=== PATIENT | female | born 1985 | race African-American/Black ===

== ENCOUNTER 2019-08-22 09:35 | Emergency (ER) | payer MEDICAID ==
[~2019-08-22] VITALS: Ht 165.1 cm; Wt 57.0 kg
[2019-08-22] MEDS ORDERED: PREDNISONE 20MG TABLET PO STA (10:30)
[2019-08-22] MEDS ORDERED: ALBUTEROL (0.083%) 2.5MG/3ML NEB HHN STA (10:30)
[2019-08-22 11:08] LABS: CLARITY URINE CLOUDY (CLEAR); COLOR URINE YELLOW (YELLOW); KETONES URINE 4+ (NEGATIVE); LEUKOCYTE ESTERASE URINE 2+ (NEGATIVE); NITRITE URINE POSITIVE (NEGATIVE); OCCULT BLOOD URINE 1+ (NEGATIVE); PH URINE 5.5 (4.5-8.0); PROTEIN URINE TRACE (NEGATIVE); SPECIFIC GRAVITY URINE 1.018 (1.005-1.030)
[2019-08-22 11:11] LABS: BASOPHILS % 0.5 % (0.0-2.0); EOSINOPHILS % 0.3 % (0.0-5.0); HEMATOCRIT. 36.8 % (36.0-48.0); HEMOGLOBIN. 12.7 g/dL (12.0-16.0); LYMPHOCYTES % 15.2 % (20.0-50.0); MEAN CORPUSCULAR HEMOGLOBIN 30.9 pg (28.0-32.0); MEAN CORPUSCULAR VOLUME 89.1 fL (81.0-99.0); MEAN PLATELET VOLUME 8.9 fl (7.4-10.4); PLATELET 85 x1000/uL (130-400); RED BLOOD CELL COUNT 4.12 mill/uL (4.2-5.4); RED CELL DISTRIBUTION WIDTH 15.3 % (11.6-14.6)
[2019-08-22 11:20] LABS: CHLORIDE 109 mEq/L (98-107)
[2019-08-22 11:24] LABS: ETHANOL BLOOD 102 mg/dL
[2019-08-22 11:27] LABS: HCG SCREEN NEGATIVE
[2019-08-22 12:11] LABS: *AMPHETAMINES SCREEN URINE NEGATIVE (NEGATIVE); *BARBITURATES SCREEN URINE NEGATIVE (NEGATIVE)
[2019-08-22 12:12] LABS: *BENZODIAZEPINES SCREEN URINE NEGATIVE (NEGATIVE); *COCAINE SCREEN URINE NEGATIVE (NEGATIVE); CANNABINOID URINE SCREEN NEGATIVE (NEGATIVE); METHADONE URINE SCREEN NEGATIVE (NEGATIVE); OPIATES URINE SCREEN NEGATIVE (NEGATIVE); PHENCYCLIDINE URINE SCREEN NEGATIVE (NEGATIVE)
[2019-08-22 13:50] VITALS: BP 120/78
[2019-08-22] MEDS ORDERED: CEFTRIAXONE SODIUM 1 G/VIAL IM ONE (14:00)
[2019-08-22] MEDS ORDERED: METRONIDAZOLE 500MG TABLET PO SCH (14:45)
== END 2019-08-22 14:57 | disposition home or self-care (01) ==
LOC: ER 10:11
DX: A59.01 Trichomonal vulvovaginitis (principal); N39.0 Urinary tract infection, site not specified; J45.909 Unspecified asthma, uncomplicated; I10 Essential (primary) hypertension; F17.211 Nicotine dependence, cigarettes, in remission
CPT/HCPCS: 36415; 80053; 80305; 80320; 81003; 81025; 84703; 85025; 87077; 87086; 87186; 94640; 96372; 99284; 99406; J0696; J7512; J7611; Z7610; G0480

== ENCOUNTER 2020-05-29 13:33 | Observation (INO) | payer MEDICAID ==
[~2020-05-29] VITALS: Ht 165.1 cm; Wt 65.8 kg
[2020-05-29] MEDS ORDERED: LACTATED RINGERS 1,000 ML IV SCH (14:45)
[2020-06-01] MEDS ORDERED: PNV1TABL76 PO (06:21)
== END 2020-05-29 15:08 | disposition home or self-care (01) ==
LOC: 8 EST LDRP 13:33
PROVIDERS: ADMIT Obstetrics & Gynecology; ATTEND Obstetrics & Gynecology
DX: Z34.93 Encounter for supervision of normal pregnancy, unspecified, third trimester (principal); Z20.828 Contact with and (suspected) exposure to other viral communicable diseases; Z3A.38 38 weeks gestation of pregnancy
CPT/HCPCS: 59025; G0378; U0003; 99281

== ENCOUNTER 2021-08-04 13:10 | Emergency (ER) | payer MEDICAID ==
[~2021-08-04] VITALS: Ht 165.1 cm; Wt 55.0 kg
[2021-08-04 15:42] VITALS: BP 112/78
== END 2021-08-04 15:43 | disposition home or self-care (01) ==
LOC: ER 13:17
DX: M79.604 Pain in right leg (principal); M25.561 Pain in right knee; I10 Essential (primary) hypertension; J45.909 Unspecified asthma, uncomplicated
CPT/HCPCS: 73560; 73590; 99284

== ENCOUNTER 2022-05-02 13:13 | Emergency (ER) | payer MEDICAID ==
[~2022-05-02] VITALS: Ht 157.5 cm; Wt 75.0 kg
[2022-05-02] MEDS ORDERED: CHLO473M2 MT (16:11)
[2022-05-02 16:15] VITALS: BP 123/86
== END 2022-05-02 16:17 | disposition home or self-care (01) ==
LOC: ER 13:13
DX: K04.7 Periapical abscess without sinus (principal)
CPT/HCPCS: 99281

== ENCOUNTER 2023-02-11 07:16 | Emergency (ER) | payer MEDICAID ==
[~2023-02-11] VITALS: Ht 165.1 cm; Wt 55.0 kg
[~2023-02-11 07:16] MED LIST: CHLO473M2 MT
[2023-02-11 07:26] VITALS: O2SAT 100
[2023-02-11 11:22] LABS: HEMATOCRIT 37.5 % (36.0-48.0); MEAN CORPUSCULAR HEMOGLOBIN 28.8 pg (28.0-32.0); MEAN CORPUSCULAR VOLUME 83.2 fL (81.0-99.0); PLATELET 286 x1000/uL (130-400); RED BLOOD CELL COUNT 4.51 mill/uL (4.2-5.4); RED CELL DISTRIBUTION WIDTH 18.2 % (11.6-14.6)
[2023-02-11 11:33] LABS: CHLORIDE 111 mEq/L (98-107)
[2023-02-11] MEDS ORDERED: IBUP-2029 MT (16:48)
[2023-02-11] MEDS ORDERED: BENZ200C52 MT (16:48)
[2023-02-11 17:18] VITALS: BP 106/87; PULSE 71; RESP 20; TEMP 97.6
== END 2023-02-11 17:20 | disposition home or self-care (01) ==
LOC: ER 07:16
DX: R07.89 Other chest pain (principal); J45.909 Unspecified asthma, uncomplicated; Z98.890 Other specified postprocedural states
CPT/HCPCS: 36415; 71045; 80053; 84484; 85027; 93005; 99285